=== PATIENT | female | born 1995 | race Caucasian/White ===

== ENCOUNTER 2017-06-13 14:15 | Inpatient (IN) | payer BC, OTHER ==
[~2017-06-13] VITALS: Ht 170.2 cm; Wt 65.3 kg
[2017-06-13] MEDS ORDERED: DICYCLOMINE HCL 20 MG TABLET PO PRN (15:45)
[2017-06-13] MEDS ORDERED: ACETAMINOPHEN 325 MG TABLET PO PRN (15:45)
[2017-06-13] MEDS ORDERED: ONDANSETRON ODT 4 MG TAB.RAPDIS SL PRN (15:45)
[2017-06-13] MEDS ORDERED: MAGNESIUM HYDROXIDE 30 ML LIQUID UDC PO PRN (15:45)
[2017-06-13] MEDS ORDERED: LORAZEPAM 2 MG/1 ML VIAL IM PRN (15:45)
[2017-06-13] MEDS ORDERED: ONDANSETRON 4 MG/2 ML VIAL IM PRN (15:45)
[2017-06-13] MEDS ORDERED: MIRALAX 17 GM POWD.PACK PO PRN (15:45)
[2017-06-13] MEDS ORDERED: LOPERAMIDE HCL 2 MG CAPSULE PO PRN ×2 (15:45)
[2017-06-13] MEDS ORDERED: MAG HYDROX/AL HYDROX/SIMETH 30 ML LIQUID UDC PO PRN (15:45)
[2017-06-13] MEDS ORDERED: LORAZEPAM 1 MG TABLET PO PRN ×2 (15:45)
[2017-06-13] MEDS ORDERED: HYDROXYZINE PAMOATE 25 MG CAPSULE PO PRN (15:45)
[2017-06-13 16:31] LABS: BASOPHILS % (AUTO) 0.3 % (0.0-2.0); EOSINOPHILS % (AUTO) 0.3 % (0.0-7.0); HEMATOCRIT 41.3 % (37-47); HEMOGLOBIN 13.7 G/DL (12.0-16.0); LYMPHOCYTES # (AUTO) 1.7 K/UL (0.8-4.8); MEAN CORPUSCULAR HEMOGLOBIN 30.1 UUG (27.0-31.0); MEAN CORPUSCULAR HGB CONC 33 g/dL (32.0-37.0); MEAN CORPUSCULAR VOLUME 90.6 FL (81.0-99.0); MONOCYTES # (AUTO) 0.3 K/UL (0.1-1.30); MONOCYTES % (AUTO) 3.8 % (0.0-11.0); NEUTROPHILS # (AUTO) 6.7 K/UL (1.8-8.9); NEUTROPHILS % (AUTO) 75.6 % (38.5-71.5); PLATELET COUNT (AUTO) 326 K/UL (150-450); RED BLOOD CELL COUNT(AUTO) 4.55 MIL/UL (4.2-5.4); WHITE BLOOD COUNT (AUTO) 8.7 K/UL (4.0-11.2)
[2017-06-13 16:40] LABS: ALANINE AMINOTRANSFERASE 24 U/L (14-59); ALKALINE PHOSPHATASE 46 U/L (50-136); AMYLASE 34 U/L (25-115); ASPARTATE AMINOTRANSFERASE 10 U/L (15-37); BILIRUBIN,TOTAL 0.3 mg/dL (0.2-1.0); CARBON DIOXIDE 22 mmol/L (21-32); CREATININE 0.8 mg/dL (0.6-1.3); GLUCOSE 106 mg/dL (74-106); LIPASE 172 U/L (73-393); MAGNESIUM 1.9 mg/dL (1.8-2.4); TOTAL PROTEIN, SERUM 7.9 g/dL (6.4-8.2); UREA NITROGEN, BLOOD 10 mg/dL (7-18)
[2017-06-13 16:41] LABS: ETHANOL < 3 MG/DL (0-0)
[2017-06-13 16:44] LABS: CHLORIDE 103 mmol/L (98-107)
[2017-06-13 16:45] VITALS: BP 150/95
--- NOTE | 2017-06-13 17:20 | NUR ---
ADMISSION NOTE Pt is a 21 year old female, admitted on 06/13/17 at 1625 for ETOH, and Benzo Dependence and medically supervised withdrawals. Pts skin and body check completed, no contraband found, skin is warm dry and intact no wounds leisions or abnormalities noted upon assessment. Pt awake, alert, oriented x 4, gait steady, pt is ambulatory without assistance. Pt weights 144 pounds and her height is 57. Reports no history of seizures. Pt escorted to room 317 where the rest of assessment was completed. Pt is primary source of information, consistent, speech coherent. Pt brought home medications which have been reconciled. Pt refused PNA Vaccinations stating that she will receive it somewhere else. Pt states that she does not have a PCP and pt denies having a psychiatrist or a psychologist. Pt requested to be full code, regular diet on fall and seizure precautions, Pt denies any food or drug allergies. Her last BM was today. Pt states that she lives in a house with her grandfather. Pt stated that she smokes 10-15 cigarettes a day. Pt denies being admitted to a hospital in the past 30 days, Pt is not a candidate for MRSA. Pts initial CIWA was a 6. Pt reports PMH of Anxiety and depression. Pt stated that she does not attend AA meetings. Pt denies any suicidal or homicidal ideations. Substance use Hx: 1.ETOH Vodka: Pt reported first drinking when she was 14 years of age, she has been drinking a fifth of vodka daily for the past 2 years she binge drinks about 3 times a week, her last use was 4 days ago she drank a fifth of vodka. 2.Xanax: Pt stated that she first used at age 19, she reports taking 2-4mg daily for the past 2 years . Her last dose was yesterday morning. Pt cooperative, appears depressed, reports moderate anxiety. Educated on relaxation techniques (deep breathing) pt verbalized understanding. Pt denies SI/HI at this time, denies hallucinations. Skin warm and moist from sweat, color pink, consistent throughout the body. Eyes PERLLA, tremors noted and felt. Pt denied tingling. All extremities with full ROM. Lung sounds clear bilaterally, no cough present, pt denies SOB. Heart rate regular. Cap refill <3 sec. No edema noted. Abdomen soft, round, bowel sounds active x 4, non tender. Pt denies urinary difficulties, urine was provided and sent to lab. Pt oriented to unit, room, equipment, shown how to use call light, provided returned demonstration. Fall precautions and seizure in place. Side rails up x2, call light within reach, bed locked in low position. MD contacted and aware of patients condition. All admitting orders have been placed, Pt is placed on a 5 day Ativan taper which starts tomorrow. Pt refused her Vitamin B injection. Her Initial CIWA 6.
[2017-06-13 17:33] LABS: *URINE HCG, QUAL NEGATIVE (NEGATIVE)
[2017-06-13 17:43] LABS: *AMPHETAMINE, URINE NEGATIVE (NEGATIVE); *BARBITURATE, URINE NEGATIVE (NEGATIVE); *CANNABINOID, URINE NEGATIVE (NEGATIVE); *COCCAINE, URINE NEGATIVE (NEGATIVE); *OPIATE, URINE NEGATIVE (NEGATIVE); *PHENCYCLIDINE SCREEN,URINE NEGATIVE (NEGATIVE)
[2017-06-13] MEDS ORDERED: THIAMINE HCL 200 MG/2 ML VIAL IM ONE (18:00)
[2017-06-13] MEDS: LORAZEPAM 1 MG TABLET PO SCH ×2 (18:02→20:30)
[2017-06-13] MEDS: GABAPENTIN 300 MG CAPSULE PO SCH ×2 (18:02→20:30)
[2017-06-13 20:00] VITALS: BP 123/87
--- NOTE | 2017-06-13 20:00 | NUR ---
Start of Shift Pt is a 21 year old female admitted for ETOH/Benzo dependence, placed on 5 day Ativan taper. Pt reports using Xanax 2-4mg daily and reports binge drinking a 5th of Vodka. PMH: Anxiety and Depression. NKA, regular diet, fall/seizure precautions, no hx of seizures. Upon assessment, pt presents with anxiety, reports mild chills/body aches throughout body, tremors felt upon touch, skin noted with sweat, respirations even/unlabored, denies SOB/chest pain, denies n/v/d, medications due. Safety measures in place, call light within reach, side rails up x2, bed locked and in low position. Will continue to monitor.
[2017-06-14] VITALS (7 sets, daily range): BP systolic 120–161; BP diastolic 62–103
[2017-06-14] MEDS: IBUPROFEN 400 MG TABLET PO PRN ×2 (00:21→20:07)
[2017-06-14] MEDS: CLONIDINE HCL 0.1 MG TABLET PO PRN ×2 (00:21→20:08)
--- NOTE | 2017-06-14 00:21 | NUR ---
PRN Administration Pt reports feeling anxious, skin is flushed/clammy, BP 161/95, Pulse 99 Clonidine 0.1mg PRN and Motrin 400mg PRN administered for headache, 03/16. Safety measures in place, will continue to monitor.
--- NOTE | 2017-06-14 01:21 | NUR ---
PRN Reassessment Upon reassessment, pt reports feeling better. Pt reports relief of headache. BP decreased from 161/95 to 117/80. Clonidine and Motrin effective. Safety measures in place. Will continue to monitor.
[2017-06-14] MEDS: diphenhydrAMINE 50 MG CAPSULE PO PRN (01:23)
--- NOTE | 2017-06-14 04:00 | NUR ---
Vital Signs BP 130/62, pulse 84, resp 16, SpO2 99% room air, temp 97.8, no pain CIWA deferred due to pt sleeping, to assess while pt is awake as ordered. Safety measures in place. will continue to monitor.
--- NOTE | 2017-06-14 07:00 | NUR ---
End of Shift Pt is a 21 year old female admitted for ETOH/Benzo dependence, placed on 5 day Ativan taper. Pt reports using Xanax 2-4mg daily and reports binge drinking a 5th of Vodka. PMH: Anxiety and Depression. NKA, regular diet, fall/seizure precautions, no hx of seizures. Upon assessment, pt presents with anxiety, reports mild chills/body aches throughout body, tremors felt upon touch, skin noted with sweat - scheduled taper medications administered, CIWA 5. No PRN medications administered during shift. Pt slept for 6 hours, intake of 1500 ml PO, voids x3 and stool x0. Safety measures in place, call light within reach, side rails up x2, bed locked and in low position. Endorsed to day shift nurse.
--- NOTE | 2017-06-14 07:01 | NUR ---
Start of Shift Notes; Received patient in her room. Alert and oriented x 4. Verbally responsive. Able to make needs known. Respirations even and unlabored. No SOB noted. Skin warm and dry to touch. Abdomen soft and non-distended. BS (+) in all 4 quadrants. No complains of N/V/D or constipation noted. Voids independently. Ambulatory ad shagufta with steady gait. Patient is a 21 year old female admitted for BZO and ETOh dependence that was placed on a 5-day Ativan taper as ordered. Prior to admission, patient was using 2-4 mg of Xanax, 1/5 of Vodka binge drinking. NKA. FULL CODE. Regular diet. On fall and seizure precautions. Educated patient on his current plan of care for the day and his medication regimen. Encouraged oral fluid intake and encouraged group participation to learn new skills to prevent relapse. Will continue to monitor closely.
[2017-06-14] MEDS: GABAPENTIN 300 MG CAPSULE PO SCH ×4 (08:50→20:08)
[2017-06-14] MEDS: THIAMINE HCL 100 MG TABLET PO SCH (08:50)
[2017-06-14] MEDS: DOCUSATE SODIUM 250 MG CAPSULE PO SCH (08:50)
[2017-06-14] MEDS: MULTIVITAMINS,THERAPEUTIC TABLET PO SCH (08:50)
[2017-06-14] MEDS: LORAZEPAM 1 MG TABLET PO SCH ×4 (08:50→20:08)
[2017-06-14] MEDS: FOLIC ACID 1 MG TABLET PO SCH (08:50)
[2017-06-14] MEDS ORDERED: TUBERCULIN,PURIF.PROT.DERIV. 5 TU/0.1 ML TEST ID ONE (09:00)
[2017-06-14] MEDS ORDERED: 5 DAY TAPER OF LORAZEPAM -SERENITY PROTOCOL PO PRN (09:00)
--- NOTE | 2017-06-14 09:26 | NUR ---
TB test refused: Patient refused TB test administration after speaking and educating patient on the risk and benefits. Patient verbalized good understanding but still refused. Patient has no cough, no congestion noted. No runny nose. No SOB. TB test not administered. Notified
[2017-06-14] MEDS ORDERED: GABA-534 PO (11:04)
[2017-06-14] MEDS ORDERED: NORE7TAB PO (11:04)
[2017-06-14] MEDS ORDERED: NORE-134 PO (11:04)
--- NOTE | 2017-06-14 15:43 | NUR ---
Endorsed care: Endorsed care to receiving nurse at this time. All pertinent information discussed.
--- NOTE | 2017-06-14 17:59 | NUR ---
End of Shift Notes: Patient continues to be on 5-day Ativan taper as ordered. No adverse reactions noted. VS monitored closely. No significant abnormalities noted. Withdrawal symptoms were closely monitored. Patient presented with fine tremors, anxiety, agitation and sweating. Initial CIWA 6. Last CIWA 4 at 1600. Per patient, Ativan has been helping her with her withdrawal symptoms. Able to participate in group and activities. Safety measures secured. Met all needs.
--- NOTE | 2017-06-14 20:00 | NUR ---
Start of Shift Pt is a 21 year old female admitted for ETOH/Benzo dependence, placed on 5 day Ativan taper. Pt reports using Xanax 2-4mg daily and reports binge drinking a 5th of Vodka. PMH: Anxiety and Depression. NKA, regular diet, fall/seizure precautions, no hx of seizures. Upon assessment, pt presents with anxiety and headache, reports chills and feeling hot/cold sensations, skin clammy, respirations even/unlabored, denies SOB/chest pain, denies n/v/d, medications due. Safety measures in place, call light within reach, side rails up x2, bed locked and in low position. Will continue to monitor.
--- NOTE | 2017-06-14 20:08 | NUR ---
PRN Administration Pt reports headache, rated 7/10. Pt reports feeling anxious, is in emotional distress. BP 159/103, pulse 113. Clonidine 0.1mg PRN and Motrin 400mg PRN adminsitered. Safety measures in place. Will continue to monitor.
--- NOTE | 2017-06-14 21:08 | NUR ---
PRN Reassessment Upon reassessment, BP 13/92, pulse 97. Pt reports feeling better. Pt states she is feeling calm and at ease. Pt denies headache. Clonidine 0.1mg PRN and Motrin 400mg PRN effective. Safety measures in place. Will continue to monitor. Addendum: 06/15/17 at 0006 by JASMINE HAMEED RN Upon reassessment, BP 138/92, pulse 97.
[2017-06-15] VITALS: BP 132/80
[2017-06-15] MEDS: diphenhydrAMINE 50 MG CAPSULE PO PRN (00:11)
--- NOTE | 2017-06-15 00:11 | NUR ---
PRN Administration Pt reports feeling anxious and difficulty sleeping. Vistaril 25mg PRN and Benadryl 50mg PRN administered. Safety measures in place. Will continue to monitor.
--- NOTE | 2017-06-15 01:11 | NUR ---
PRN Reassessment Upon reassessment, pt is sleeping, no s/s of distress noted, respirations even/unlabored. Safety measures in place. Will continue to monitor.
[2017-06-15 04:00] VITALS: BP 129/87
--- NOTE | 2017-06-15 04:00 | NUR ---
Vital Signs BP 129/87, pulse 85, resp 17, SpO2 99% room air, temp 98.2, no pain CIWA deferred due to pt sleeping, to assess while pt is awake as ordered. Safety measures in place. will continue to monito
--- NOTE | 2017-06-15 07:00 | NUR ---
End of Shift Pt is a 21 year old female admitted for ETOH/Benzo dependence, placed on 5 day Ativan taper. Pt reports using Xanax 2-4mg daily and reports binge drinking a 5th of Vodka. PMH: Anxiety and Depression. NKA, regular diet, fall/seizure precautions, no hx of seizures. During shift, pt presented with anxiety and headache, reported chills and feeling hot/cold sensations, skin clammy - scheduled taper medications administered, CIWA 7. Clonidine 0.1mg PRN and Motrin 400mg PRN administered for elevated BP and headache, effective. Vistaril 25mg PRN and Benadryl 50mg PRN administered for anxiety and sleep aid, effective. Pt slept for 6 hours, intake of 1000 ml PO, voids x2 and stool x1. Safety measures in place, call light within reach, side rails up x2, bed locked and in low positiion. Will continue to monitor.
--- NOTE | 2017-06-15 07:58 | NUR ---
Start of shift note; Received report from night nurse. Patient is a 21 year old female admitted on 06/13/17 for ETOH/Benzo dependence. Patient reported history of anxiety and depression. patient was placed on a 5 day Ativan taper started on 06/14/17. Patient last CIWA is 7 at 2100. Patient received PRN Benadryl, Clonidine,Vistaril and Motrin all noted to be effective per endorsement. All safety measures secured. Will continue to monitor patient.
[2017-06-15 08:00] VITALS: BP 113/70
[2017-06-15] MEDS ORDERED: PATIENT MAY USE OWN MED- MD OK PO SCH (09:00)
[2017-06-15] MEDS: MULTIVITAMINS,THERAPEUTIC TABLET PO SCH (09:19)
[2017-06-15] MEDS: DOCUSATE SODIUM 250 MG CAPSULE PO SCH (09:19)
[2017-06-15] MEDS: FOLIC ACID 1 MG TABLET PO SCH (09:19)
[2017-06-15] MEDS: GABAPENTIN 300 MG CAPSULE PO SCH ×4 (09:19→20:55)
[2017-06-15] MEDS: LORAZEPAM 1 MG TABLET PO SCH ×3 (09:20→20:55)
[2017-06-15] MEDS: BLISOVI FE PO SCH (09:20)
[2017-06-15] MEDS: THIAMINE HCL 100 MG TABLET PO SCH (09:20)
[2017-06-15 10:09] LABS: HEPATITIS B SURFACE AG Negative (Negative)
[2017-06-15 12:00] VITALS: BP 130/73
[2017-06-15 16:00] VITALS: BP 119/67
--- NOTE | 2017-06-15 18:35 | NUR ---
End of Shift Notes: Patient is AOX4. Patient continues to be on 5-day Ativan taper as ordered. No adverse reactions noted. VS monitored closely. No significant abnormalities noted. Withdrawal symptoms were closely monitored. Patient presented with fine tremors, anxiety, agitation and sweating. Last CIWA 4 at 1600. Per patient, Ativan has been helping her with her withdrawal symptoms. Able to participate in group and activities. Safety measures secured. Met all needs.
[2017-06-15 20:00] VITALS: BP 133/92
--- NOTE | 2017-06-15 20:00 | NUR ---
START OF SHIFT NOTE RECEIVED REPORT FROM DAY SHIFT NURSE. PATIENT IS A 21 YEAR OLD FEMALE, ADMITTED FOR ETOH/BENZO DEPENDENCE. PATIENT IS ON 2ND DAY OF HIS 5 DAY ATIVAN TAPER. PATIENT REPORTS PMH OF ANXIETY AND DEPRESSION. NO SEIZURE HISTORY. SKIN INTACT. PATIENT COMPLIANT WITH MEDICATIONS AND TREATMENT PLAN. PATIENT DID NOT REQUIRE ANY PRN MEDICATION. LAST CIWA 3. RECEIVED PATIENT IN THE ROOM. ALERT AND ORIENTED X 4. RESPIRATION EVEN AND UNLABORED. PATIENT STATES SHE WAS NAUSEOUS ALL DAY BUT ITS GETTING BETTER. NO N/V, DENIES ANY PAIN AT THIS TIME. PATIENT REPORTS ANXIETY AND SWEATING. SHE ATTENDED ALL GROUPS. ON FALL/SEIZURE PRECAUTION. SAFETY MEASURES IN PLACE. CALL LIGHT IN REACH. WILL CONTINUE TO MONITOR.
[2017-06-15] MEDS ORDERED: CLONIDINE HCL 0.1 MG TABLET PO SCH (21:00)
[2017-06-15] MEDS: TRAZODONE 50 MG TABLET PO PRN (23:12)
--- NOTE | 2017-06-15 23:12 | NUR ---
PRN TRAZADONE ADMINISTRATION PATIENT REQUESTS FOR SLEEP AID. PRN TRAZADDNE GIVEN. WILL MONITOR FOR EFFECTIVENESS
[2017-06-15] MEDS: IBUPROFEN 400 MG TABLET PO PRN (23:55)
--- NOTE | 2017-06-15 23:55 | NUR ---
PRN MOTRIN ADMINISTRATION PATIENT C/O HEADACHE 03/16. PRN MOTRIN GIVEN. WILL MONITOR FOR EFFECTIVENESS
[2017-06-16] VITALS: BP 110/72
--- NOTE | 2017-06-16 00:12 | NUR ---
PRN MOTRIN RE-ASSESSMENT PATIENT STATES MOTRIN IS HELPFUL. PAIN LEVEL 2/10 AT THIS TIME. WILL CONTINUE TO MONITOR.
--- NOTE | 2017-06-16 00:55 | NUR ---
PRN TRAZADONE RE-ASSESSMENT PATIENT ASLEEP AT THIS TIME. RESPIRATION EVEN AND UNLABORED. SAFETY MEASURES IN PLACE. CALL LIGHT IN REACH. WILL CONTINUE TO MONITOR.
[2017-06-16 04:00] VITALS: BP 110/58
--- NOTE | 2017-06-16 04:00 | NUR ---
CIWA DEFERRED PATIENT SLEEPING . RESPIRATION EVEN AND UNLABORED.SAFETY MEASURES IN PLACE. CALL LIGHT IN REACH. WILL CONTINUE TO MONITOR
--- NOTE | 2017-06-16 07:01 | NUR ---
END OF SHIFT NOTE PATIENT IS A 21 YEAR OLD FEMALE, ADMITTED FOR ETOH/BENZO DEPENDENCE. CONTINUE ON ATIVAN TAPER, TOLERATED WELL AND NO ADVERSE REACTION NOTED. PATIENT STATES THAT MEDICATIONS ARE EFFECTIVE IN CONTROLLING HER WITHDRAWAL SYMPTOMS. PATIENT WAS GIVEN PRN TRAZADONE AT 2312 AND MOTRIN AT 2355. PATIENT COMPLIANT WITH MEDICATIONS AND TREATMENT PLAN. SHE ATTENDED ALL GROUPS. SKIN INTACT. ON FALL/SEIZURE PRECAUTION. SAFETY MEASURES IN PLACE. CALL LIGHT IN REACH. WILL CONTINUE TO MONITOR. SLEPT 4 HOURS. FLUID INTAKE 1,000 ML. VOIDED X 2 . NO BM. LAST CIWA 3.
--- NOTE | 2017-06-16 07:30 | NUR ---
Start of shift note; Received report from night nurse. Patient is a 21 year old female admitted on 06/13/17 for ETOH/Benzo dependence. Patient reported history of anxiety and depression. patient was placed on a 5 day Ativan taper started on 06/14/17. Patient last CIWA is 3 at 2100. Patient received PRN Trazodone and Motrin all noted to be effective per endorsement. All safety measures secured. Will continue to monitor patient.
[2017-06-16 08:00] VITALS: BP 98/68
[2017-06-16] MEDS: LORAZEPAM 1 MG TABLET PO SCH ×2 (08:26→12:44)
[2017-06-16] MEDS: THIAMINE HCL 100 MG TABLET PO SCH (08:26)
[2017-06-16] MEDS: BLISOVI FE PO SCH (08:26)
[2017-06-16] MEDS: GABAPENTIN 300 MG CAPSULE PO SCH ×2 (08:26→20:49)
[2017-06-16] MEDS: MULTIVITAMINS,THERAPEUTIC TABLET PO SCH (08:26)
[2017-06-16] MEDS: FOLIC ACID 1 MG TABLET PO SCH (08:26)
[2017-06-16 12:00] VITALS: BP 120/82
[2017-06-16] MEDS: GABAPENTIN 400 MG CAPSULE PO SCH (14:25)
[2017-06-16] MEDS: CLONIDINE HCL 0.1 MG TABLET PO SCH ×2 (14:25→20:49)
[2017-06-16 16:00] VITALS: BP 109/66
[2017-06-16] MEDS ORDERED: LORAZEPAM 1 MG TABLET PO SCH ×2 (17:00→21:00)
--- NOTE | 2017-06-16 18:25 | NUR ---
End of Shift Notes: Patient is AOX4. Patient continues to be on 5-day Ativan taper as ordered. No adverse reactions noted. VS monitored closely. No significant abnormalities noted. Withdrawal symptoms were closely monitored. Patient presented with fine tremors, anxiety, agitation and sweating. Last CIWA 2 at 1600. Per patient, Ativan has been helping her with her withdrawal symptoms. Able to participate in group and activities. Safety measures secured. Met all needs.
[2017-06-16 20:00] VITALS: BP 120/66
--- NOTE | 2017-06-16 20:00 | NUR ---
START OF SHIFT NOTE RECEIVED REPORT FROM DAY SHIFT NURSE. PATIENT IS A 21 YEAR OLD FEMALE ADMITTED FOR ETOH/BENZO DEPENDENCE. CONTINUE ON ATIVAN TAPER, TOLERATED WELL. PATIENT REPORTS PMH OF ANXIETY AND DEPRESSION. NO SEIZURE HISTORY. SKIN INTACT. PATIENT DID NOT REQUIRE ANY PRN MEDICATION. LAST CIWA 2. RECEIVED PATIENT ALERT AND ORIENTED X 4. RESPIRATION EVEN AND UNLABORED. PATIENT REPORTS ANXIETY, SWEATING, A NAUSEATED BUT STATE SHE'S OK AND DOES WANT ZOFRAN. NO VOMITING. DENIES ANY PAIN AT THIS TIME. APPETITE IS GETTING BETTER. ON FALL/SEIZURE PRECAUTION. SAFETY MEASURES IN PLACE. CALL LIGHT IN REACH. WILL CONTINUE TO MONITOR.
[2017-06-16] MEDS: IBUPROFEN 400 MG TABLET PO PRN (23:52)
[2017-06-16] MEDS: TRAZODONE 50 MG TABLET PO PRN (23:52)
--- NOTE | 2017-06-16 23:52 | NUR ---
PRN CATAPRES, DESYREL AND MOTRIN ADMINISTRATION PATIENT C/O ANXIETY, UNABLE TO SLEEP AND HEADACHE 5/10. WILL MONITOR FOR EFFECTIVENESS
[2017-06-16] MEDS: CLONIDINE HCL 0.1 MG TABLET PO PRN (23:53)
[2017-06-17] VITALS: BP 120/69
--- NOTE | 2017-06-17 00:52 | NUR ---
PRN CATAPRES, DESYREL AND MOTRIN RE-ASSESSMENT PATIENT SLEEPING COMFORTABLY. NO FACIAL GRIMACING. RESPIRATION EVEN AND UNLABORED. WILL CONTINUE TO MONITOR
[2017-06-17 04:00] VITALS: BP 102/57
--- NOTE | 2017-06-17 04:00 | NUR ---
CIWA DEFERRED PATIENT SLEEPING. CIWA DEFERRED. RESPIRATION EVEN AND UNLABORED. SAFETY MEASURES IN PLACE. CALL LIGHT IN REACH. WILL CONTINUE TO MONITOR
--- NOTE | 2017-06-17 07:22 | NUR ---
END OF SHIFT NOTE PATIENT CONTINUE ON ATIVAN TAPER FOR ETOH/BENZO DEPENDENCE TOLERATED WELL, NO ADVERSE REACTION. PATIENT REMAIN ALERT AND ORIENTED X 4. RESPIRATION EVEN AND UNLABORED. PATIENT COMPLIANT WITH MEDICATIONS AND TREATMENT PLAN. PATIENT WAS GIVEN PRN CATAPRES, DESYREL AND MOTRIN. ON FALL/SEIZURE PRECAUTION. SAFETY MEASURES IN PLACE. CALL LIGHT IN REACH. WILL CONTINUE TO MONITOR. SLEPT 6 HOURS. FLUID INTAKE 1,000 ML. VOIDED X 3. NO BM. LAST CIWA 3.
--- NOTE | 2017-06-17 07:28 | NUR ---
Start of shift note; Received report from night nurse. Patient is a 21 year old female admitted on 06/13/17 for ETOH/Benzo dependence. Patient reported history of anxiety and depression. patient was placed on a 5 day Ativan taper started on 06/14/17. Patient received PRN Vistaril and Clonidine all noted to be effective per endorsement. All safety measures secured. Will continue to monitor patient.
[2017-06-17 08:00] VITALS: BP 100/62
[2017-06-17] MEDS: MULTIVITAMINS,THERAPEUTIC TABLET PO SCH (08:09)
[2017-06-17] MEDS: LORAZEPAM 1 MG TABLET PO SCH ×3 (08:09→20:06)
[2017-06-17] MEDS: GABAPENTIN 400 MG CAPSULE PO SCH ×2 (08:09→14:44)
[2017-06-17] MEDS: THIAMINE HCL 100 MG TABLET PO SCH (08:09)
[2017-06-17] MEDS: BLISOVI FE PO SCH (08:09)
[2017-06-17] MEDS: FOLIC ACID 1 MG TABLET PO SCH (08:09)
[2017-06-17 12:00] VITALS: BP 118/73
--- NOTE | 2017-06-17 13:59 | NUR ---
Therapist encouraged client to attend group today. Client is having a hard time with groups. Client agreed to attend.
[2017-06-17] MEDS: CLONIDINE HCL 0.1 MG TABLET PO SCH ×2 (14:44→20:07)
[2017-06-17 16:00] VITALS: BP 131/79
--- NOTE | 2017-06-17 18:10 | NUR ---
Start of Care Pt is a 21 year old female admitted for ETOH/Benzo dependence, placed on 5 day Ativan taper. Pt reports using Xanax 2-4mg daily and reports binge drinking a 5th of Vodka. PMH: Anxiety and Depression. NKA, regular diet, fall/seizure precautions, no hx of seizures. Upon assessment, pt presents with anxiety, reports feeling hot/cold sensations, respirations even/unlabored, denies SOB/chest pain, denies n/v/d, medications due. Safety measures in place, call light within reach, side rails up x2, bed locked and in low position. Will continue to monitor.
[2017-06-17 20:00] VITALS: BP 136/89
[2017-06-17] MEDS: GABAPENTIN 300 MG CAPSULE PO SCH (20:06)
[2017-06-17] MEDS: IBUPROFEN 400 MG TABLET PO PRN (23:36)
[2017-06-17] MEDS: TRAZODONE 50 MG TABLET PO PRN (23:36)
--- NOTE | 2017-06-17 23:36 | NUR ---
PRN Administration Pt reports headache, rated 5/10. Pt requests aid to help her sleep. Motrin 400mg PRN and Trazodone 50mg PRN administered. Safety measures in place. Will continue to monitor.
[2017-06-18] VITALS: BP 117/81
--- NOTE | 2017-06-18 | NUR ---
Vital Signs/CIWA deferred BP 117/81, pulse 89, resp 16, Spo2 98% room air, temp 97.9, no reports of pain CIWA deferred due to pt sleeping, to assess while pt is awake as ordered. Safety measures in place. Will continue to monitor.
--- NOTE | 2017-06-18 00:36 | NUR ---
PRN Reassessment Upon reassessment, pt is in bed with eyes closed, sleeping, respirations even/unlabored. Safety measures in place. Will continue to monitor.
[2017-06-18 04:00] VITALS: BP 109/59
--- NOTE | 2017-06-18 04:00 | NUR ---
Vital Signs/CIWA deferred BP 109/59, pulse 80, resp 16, Spo2 99% room air, temp 98.2, no reports of pain CIWA deferred due to pt sleeping, to assess while pt is awake as ordered. Safety measures in place. Will continue to monitor.
--- NOTE | 2017-06-18 07:00 | NUR ---
End of Shift Pt is a 21 year old female admitted for ETOH/Benzo dependence, placed on 5 day Ativan taper. Pt reports using Xanax 2-4mg daily and reports binge drinking a 5th of Vodka. PMH: Anxiety and Depression. NKA, regular diet, fall/seizure precautions, no hx of seizures. During shift, pt presented with anxiety, reports feeling hot/cold sensations - scheduled medications administered - effective in management of s/s of withdrawal as reported by pt, VASILIYWA 4. No PRN medications administered during shift. Pt slept for 5 hours, intake of 1000 ml PO, voids x3 and stool x0. Safety measures in place, call light within reach, side rails up x2, bed locked and in low position. Endorsed to day shift nurse.
--- NOTE | 2017-06-18 08:00 | NUR ---
START OF SHIFT Rcvd endorsement from ongoing nurse, client is in room, she is a/o x 4, she presents with anxious mood, flat affect, she is fully ambulatory. She reports anxiety, restless legs, decreased appetite, and fatigue. Client denies any N/V/D. Client denies any SI/HI. Encourage client to attend group therapy for skills to maintain sober, she verbalized understanding. Encourage client to increase PO fluid intake as tolerated to facilitate detox. Client is a 21 yo female, admitted to [facility] for withdrawal from alcohol and benzodiazepines. She is on 5 day Ativan taper (day 4), tolerating well with no ASE. Last CIWA 4 @ 1999. PRN Motrin 400mg PO for CORTES, PRN Trazodone 50mg PO for inability to sleep, she slept 5 hrs. Client reported NKA, full code, regular diet. Client denies a hx of withdrawal-induced seizure. Side rails x 2 up/padded, bed in lowest/lock position. Call light within reach.
[2017-06-18 08:04] VITALS: BP 104/60
[2017-06-18] MEDS: LORAZEPAM 1 MG TABLET PO SCH ×2 (09:11→21:01)
[2017-06-18] MEDS: MULTIVITAMINS,THERAPEUTIC TABLET PO SCH (09:11)
[2017-06-18] MEDS: THIAMINE HCL 100 MG TABLET PO SCH (09:11)
[2017-06-18] MEDS: GABAPENTIN 400 MG CAPSULE PO SCH (09:11)
[2017-06-18] MEDS: FOLIC ACID 1 MG TABLET PO SCH (09:11)
[2017-06-18] MEDS: BLISOVI FE PO SCH (09:14)
[2017-06-18 12:16] VITALS: BP_SYST 131; BP_SYST 141; BP_DIAS 102; BP_DIAS 88
[2017-06-18] MEDS ORDERED: GABAPENTIN 300 MG CAPSULE PO SCH (15:00)
[2017-06-18] MEDS ORDERED: CLONIDINE HCL 0.1 MG TABLET PO SCH (15:00)
[2017-06-18 16:00] VITALS: BP 130/72
--- NOTE | 2017-06-18 17:15 | NUR ---
Client was prompted by therapist to attend daily group sessions. Client stated that she would attend.
--- NOTE | 2017-06-18 17:55 | NUR ---
PRN Zofran 4mg SL for nausea, no episodes of emesis. Call light within reach. will continue to monitor.
--- NOTE | 2017-06-18 18:02 | NUR ---
MD Notification Client reports blurry vision, nausea and weak lower extremities, she has a steady gait. Vitals T 98.4, P 74, BP 128/78, RR, 18, SPO2 @ 99% on RA, denies any pain. Zofran 4mf SL administered, encouraged increased PO fluid intake to facilitate detox. Client believes that is the increase of gabapentin medication from 300mg to 600mg. Rachel Atwood stated, "He will adjust dose accordingly." Charge nurse made aware.
--- NOTE | 2017-06-18 18:55 | NUR ---
END OF SHIFT and Reassessment Zofran 4mg SL Endorsed client to incoming nurse, Client is a 21 yo female, admitted to [facility] for withdrawal from alcohol and benzodiazepines. She is on 5 day Ativan taper (day 4), tolerating well with no ASE. Last CIWA 7 @ 1600. PRN Zofran 4mg SL for nausea, noted effective. Dr. Ramos adjusted Gabapentin to 300mg TID PO, client verbalized understanding. Client is in room, she is a/o x 4, she continues to presents with anxious mood, flat affect. Client denies any SI/HI. Client was compliant with 2/3 of group therapy. Adequate PO fluid intake 2105mL, void x 4. Client consumes `75% of her meals. Client reported NKA, full code, regular diet. Client denies a hx of withdrawal-induced seizure. Side rails x 2 up/padded, bed in lowest/lock position. Call light within reach.
--- NOTE | 2017-06-18 19:26 | NUR ---
Start of shift Patient is a 21 year old female admitted to [facility] on 06-13-17 for Alcohol and benzo detox. She has PMH of anxiety and depression. She has no history of seizures. She is on a five day ativan taper. She is a full code on a regular diet and has NKA. Patient mood has remained stable but affect is flat and patient appears withdrawn at times. At change of shift patient in bed with eyes closed. Breathing even and unlabored. vital signs remain stable. Safety precautions in place, fall and seizure precautions, 2 side rails up for safety. Call light within reach. Report received from AM nurse. Addendum: 06/18/17 at 1932 by NEVIN DUEÑAS RN Jose NEUMANN 7 at 1600
[2017-06-18 20:00] VITALS: BP 131/77
[2017-06-18] MEDS: GABAPENTIN 300 MG CAPSULE PO SCH (21:00)
[2017-06-18] MEDS: CLONIDINE HCL 0.1 MG TABLET PO SCH (21:02)
--- NOTE | 2017-06-18 21:43 | NUR ---
Refusal of medication Patient refused Gabapentin 300 mg PO at 2100. Patient states she felt sick after a "higher dose" earlier today and wants to wait until tomorrow to take her next dose. Patient slept for three hours this francisco.
[2017-06-18] MEDS: TRAZODONE 50 MG TABLET PO PRN (22:47)
--- NOTE | 2017-06-18 22:49 | NUR ---
PRN Medication Trazodone 50 mg PO given at 2047 for insomnia. Effect pending Addendum: 06/18/17 at 2251 by NEVIN DUEÑAS RN wrong time: accurate time is [id number]
--- NOTE | 2017-06-18 23:48 | NUR ---
REASSESSMENT OF PATIENT PATIENT REASSESSED ONE HOUR AFTER PRN TRAZODONE GIVEN FOR INSOMNIA. PATIENT AWAKE, BUT STATES FEELING TIRED. RESTING IN BED. FAIR EFFECT NOTED
[2017-06-19] VITALS: BP 130/84
--- NOTE | 2017-06-19 04:11 | NUR ---
CIWA DEFERRED VS REFUSED AT 0400 CIWA DEFERRED FOR SLEEP
--- NOTE | 2017-06-19 06:58 | NUR ---
END OF SHIFT Patient is a 21 year old female admitted to [facility] on 06-13-17 for Alcohol and Benzo detox. She has PMH of anxiety and depression. She denies seizure history. She continues on a five day ativan taper. Vital signs at 2000 BP 131/77, P 78, R 16, SPO2 100% on RA, T 98.4. CIWA 2. VS AT 0000 BP 130/84, P 84, R 18, T 98.4, SPO2 98% ON RA. CIWA 2. Patient refused her Neurontin dose at 2100 stating her earlier dose made her feel sedated and nauseous. She is aware that MD has reduced the dose but still did not want to take dose this evening. Patient received PRN Trazodone for sleep with effectiveness She is a full code on a regular diet and has NKA. Patient mood has remained stable but affect is flat and patient appears withdrawn at times. She states she is feeling down and numb regarding loss of a boyfriend to overdose prior to coming to detox. She denies SI or HI. Patient slept a total of 6 hours. Intake 1350 ML output 4 VOIDS. Safety precautions in place including fall and seizure precautions. 2 side rails up for safety. Call light within reach. Report given to AM nurse.
--- NOTE | 2017-06-19 07:44 | NUR ---
START OF SHIFT Rcvd endorsement from ongoing nurse, client is in room, she is a/o x 4, she presents with depressed mood, flat affect, she is fully ambulatory. She reports anxiety, fatigue, and restless legs stating "I don't like this feeling on my legs, I can not stop moving them." Encouraged client to adhere to medication regime which includes Gabapentin 300mg. Client denies any N/V/D. Client denies any SI/HI. Encourage client to attend group therapy for skills to maintain sober. Encourage client to increase PO fluid intake as tolerated to facilitate detox. Client is a 21 yo female, admitted to [facility] for withdrawal from alcohol and benzodiazepines. She is on last of 5 day Ativan taper, tolerating well with no ASE. Last CIWA 2 @ 2400. PRN Trazodone 50mg PO for inability to sleep, she slept 6 hrs. Client reported NKA, full code, regular diet. Client denies a hx of withdrawal-induced seizure. Side rails x 2 up/padded, bed in lowest/lock position. Call light within reach.
[2017-06-19 08:00] VITALS: BP 114/78
[2017-06-19] MEDS ORDERED: LORAZEPAM 1 MG TABLET PO SCH (09:00)
[2017-06-19] MEDS: THIAMINE HCL 100 MG TABLET PO SCH (09:14)
[2017-06-19] MEDS: FOLIC ACID 1 MG TABLET PO SCH (09:14)
[2017-06-19] MEDS: MULTIVITAMINS,THERAPEUTIC TABLET PO SCH (09:14)
[2017-06-19] MEDS: GABAPENTIN 300 MG CAPSULE PO SCH ×2 (09:15→14:29)
[2017-06-19] MEDS: BLISOVI FE PO SCH (09:17)
[2017-06-19] MEDS ORDERED: diphenhydrAMINE 25 MG/10 ML UDC NG PRN (10:30)
[2017-06-19] MEDS ORDERED: diphenhydrAMINE 25 MG CAP PO PRN (10:45)
[2017-06-19 12:48] VITALS: BP 135/89
[2017-06-19] MEDS: CLONIDINE HCL 0.1 MG TABLET PO SCH ×2 (14:29→21:53)
[2017-06-19 16:00] VITALS: BP 112/73
--- NOTE | 2017-06-19 19:10 | NUR ---
Start of Shift Patient Received. Patient is in group activities participating in a group meeting. Patient is a 21 year old female admitted on 06/13/17 for ETOH and Benzo Dependence under the care of 06/13/17 and received a 5 day Ativan. No known allergies, wishes to be full code, following a regular diet, placed on fall and seizure precautions, and skin noted intact. Past medical history noted as Anxiety and Depression. Per endorsement, patient is set for discharge tomorrow 06/20/17. No PRN Medications administered. All needs attended to promptly. Will continue to monitor.
--- NOTE | 2017-06-19 19:40 | NUR ---
END OF SHIFT Endorsed client to incoming nurse, Client is a 21 yo female, admitted to [facility] for withdrawal from alcohol and benzodiazepines. She completed 5 day Ativan taper, tolerated well, with no ASE. Last CIWA 3 @ 1600. Client is in room, she is a/o x 4, she continues to presents with anxious mood, flat affect. Client denies any SI/HI. Client was compliant with group therapy. Adequate PO fluid intake 2065mL, void x 4, stool x 1. Client consumes 75-100% of her meals. Client reported NKA, full code, regular diet. Client denies a hx of withdrawal-induced seizure. Side rails x 2 up/padded, bed in lowest/lock position. Call light within reach.
[2017-06-19] MEDS ORDERED: GABA-534 PO ×2 (20:18)
[2017-06-19] MEDS ORDERED: TRAZ-144 PO (20:18)
[2017-06-19] MEDS ORDERED: IBUP-1953 PO (20:18)
[2017-06-19] MEDS ORDERED: HYDR-3895 PO (20:18)
[2017-06-19] MEDS ORDERED: CLON0.1T14 PO (20:18)
[2017-06-19] MEDS ORDERED: QUET25TA PO (20:18)
[2017-06-19 20:43] VITALS: BP 129/84
[2017-06-19] MEDS ORDERED: GABAPENTIN 300 MG CAPSULE PO SCH (21:00)
[2017-06-19] MEDS ORDERED: QUETIAPINE FUMARATE 25 MG TABLET PO SCH (21:00)
[2017-06-20 00:50] VITALS: BP 119/73
[2017-06-20 04:00] VITALS: BP 113/70
--- NOTE | 2017-06-20 07:08 | NUR ---
End of Shift Patient is in bed sleeping. Breathing even and non labored. Patient is a 21 year old female admitted on 06/13/17 for ETOH and Benzo Dependence and received a 5 day Ativan. No known allergies, Full Code, Regular Diet, placed on fall and seizure precautions, and skin noted intact. Patient is set for discharge today 06/20/17. No PRN Medications administered. All needs attended to promptly. Will endorse to continue to monitor.
--- NOTE | 2017-06-20 07:30 | NUR ---
start of shift note: received pt from night club manager nurse, pt is in stable condition at this time. pt is admitted to [facility] for benzo/etoh withdrawal/dependence. pts last ciwa 3. pt slept 8 hrs. pt is set to discharge today. will assist pt in discharging and will continue to monitor pt for any changes. pt's last ciwa 3 and slept for 8 hrs
[2017-06-20] MEDS: BLISOVI FE PO SCH (09:09)
[2017-06-20] MEDS: MULTIVITAMINS,THERAPEUTIC TABLET PO SCH (09:09)
[2017-06-20] MEDS: GABAPENTIN 300 MG CAPSULE PO SCH (09:09)
[2017-06-20] MEDS: FOLIC ACID 1 MG TABLET PO SCH (09:10)
[2017-06-20] MEDS: THIAMINE HCL 100 MG TABLET PO SCH (09:10)
--- NOTE | 2017-06-20 09:30 | NUR ---
discharge note: pt left the unit in stable condition, pt teaching administered and pt verbalized understanding. pts personal belongings were returned. pt will be transferred to [facility] via private car.
== END 2017-06-20 09:24 | disposition other institution (70) | DRG 895 ==
LOC: SRC 15:01
PROVIDERS: ADMIT Internal Medicine; ATTEND Internal Medicine
PROC: HZ2ZZZZ Detoxification Services for Substance Abuse Treatment (ICD-10-PCS; principal; 2017-06-13)
PROC: HZ41ZZZ Group Counseling for Substance Abuse Treatment, Behavioral (ICD-10-PCS; 2017-06-14)
PROC: HZ31ZZZ Individual Counseling for Substance Abuse Treatment, Behavioral (ICD-10-PCS; 2017-06-16)
DX: F10.232 Alcohol dependence with withdrawal with perceptual disturbance (principal); I15.9 Secondary hypertension, unspecified; F11.90 Opioid use, unspecified, uncomplicated; F13.232 Sedative, hypnotic or anxiolytic dependence with withdrawal with perceptual disturbance; Y90.9 Presence of alcohol in blood, level not specified; Z81.8 Family history of other mental and behavioral disorders; Z81.4 Family history of other substance abuse and dependence; F41.1 Generalized anxiety disorder; F17.210 Nicotine dependence, cigarettes, uncomplicated; F14.10 Cocaine abuse, uncomplicated; F16.10 Hallucinogen abuse, uncomplicated; F12.90 Cannabis use, unspecified, uncomplicated
CPT/HCPCS: 36415; 70030-TC; 80307; 83690; 83735; 84703; 85025; 86592; 86705; 86803; 87340; 87806; A4663; G0480; Q0162; Q0163